=== PATIENT | female | born 1990 | race Caucasian/White ===

== ENCOUNTER 2017-10-23 09:55 | Emergency (ER) | payer OTHER ==
[2017-10-23 11:15] LABS: BILIRUBIN,URINE NEGATIVE (NEGATIVE); CLARITY,URINE CLEAR (CLEAR); GLUCOSE, URINE (UA) NEGATIVE (NEGATIVE); KETONES,URINE (UA) NEGATIVE (NEGATIVE); LEUKOCYTE ESTERASE, URINE NEGATIVE (NEGATIVE); NITRITE,URINE NEGATIVE (NEGATIVE); OCCULT BLOOD,URINE SMALL (NEGATIVE); PH,URINE 7.5 PH (5.0-7.5); PROTEIN,URINE NEGATIVE (NEGATIVE); UROBILINOGEN,URINE 0.2 (NORMAL) E.U./dL (NORMAL)
[2017-10-23 11:16] LABS: HCG UR QUAL POSITIVE
[2017-10-23 11:26] LABS: RBC,URINE 0-5 /HPF (0-5); SQUAMOUS EPITHELIAL CELL,UR MOD Squamous (<= Few)
[2017-10-23 11:27] LABS: BACTERIA,URINE None Seen /HPF (None Seen)
--- NOTE | 2017-10-23 12:25 | ED Physician Documentation ---
PD HPI FEMALE - Stated complaint Stated Complaint: BLEEDING/8-12WKS - Chief complaint Chief Complaint: Abd Pain - History obtained from History obtained from: Patient - History of Present Illness Timing - onset: Today Timing - details: Abrupt onset (had some blood and a clot when went to bathroom this morning. Is 8 weeks .). No: Still present Associated symptoms: Vaginal bleeding. No: Fever, Pelvic pain, Vaginal discharge Contributing factors: Similar symptoms before: Has not had sx before Recently seen: Not recently seen Review of Systems Constitutional: denies: Fever Nose: denies: Rhinorrhea / runny nose, Congestion Throat: denies: Sore throat Respiratory: denies: Cough GI: denies: Abdominal Pain, Nausea, Vomiting, Diarrhea : denies: Dysuria, Frequency PD PAST MEDICAL HISTORY - Past Medical History Cardiovascular: None Respiratory: None Neuro: None Endocrine/Autoimmune: None - Present Medications Home Medications: Ambulatory Orders Medication Instructions Recorded Confirmed Ondansetron HCl [Zofran] 4 mg PO Q6H PRN #30 tablet 10/23/17 - Allergies Allergies/Adverse Reactions: Allergies Allergy/AdvReac Type Severity Reaction Status Date / Time No Known Drug Allergies Allergy Verified 10/23/17 10:08 PD ED PE NORMAL - Vitals Vital signs reviewed: Yes - General General: Alert and oriented X 3, No acute distress, Well developed/nourished - Abdomen Abdomen: Soft, Non tender - Female Female : Deferred - Back Back: No CVA TTP - Derm Derm: Normal color, Warm and dry Results - Vitals Vitals: Vital Signs - 24 hr 10/23/17 10/23/17 10:04 12:51 Temperature 36.4 C L 36.6 C Heart Rate 68 66 Respiratory 16 18 Rate Blood Pressure 116/74 120/74 O2 Saturation 100 100 Oxygen O2 Source Room air - Labs Labs: Laboratory Tests 10/23/17 11:04 Urine Color YELLOW Urine Clarity CLEAR Urine pH 7.5 Ur Specific [place] 1.010 Urine Protein NEGATIVE Urine Glucose (UA) NEGATIVE Urine Ketones NEGATIVE Urine Occult Blood SMALL H Urine Nitrite NEGATIVE Urine Bilirubin NEGATIVE Urine Urobilinogen 0.2 (NORMAL) Ur Leukocyte Esterase NEGATIVE Urine RBC 0-5 Urine WBC 0-3 Ur Squamous Epith Cells MOD Squamous H Urine Bacteria None Seen Ur Microscopic Review INDICATED Urine Culture Comments NOT INDICATED Urine HCG, Qual POSITIVE PD MEDICAL DECISION MAKING - ED course Complexity details: reviewed results (bedside U/S showing normal IUP with good FHR. No pelvic free fluid. ), considered differential, d/w patient - Sepsis Event Vital Signs: Vital Signs - 24 hr 10/23/17 10/23/17 10:04 12:51 Temperature 36.4 C L 36.6 C Heart Rate 68 66 Respiratory 16 18 Rate Blood Pressure 116/74 120/74 O2 Saturation 100 100 Oxygen O2 Source Room air Departure - Departure Disposition: 01 Home, Self Care Clinical Impression: Bleeding in early Qualifiers: Weeks of gestation: 8 weeks Qualified Code(s): Z3A.08 - 8 weeks gestation of Condition: Stable Record reviewed to determine appropriate education?: Yes Instructions: Bleeding Early Preg Follow-Up: MORA MARIN DO [Primary Care Provider] - Prescriptions: Ondansetron HCl [Zofran] 4 mg PO Q6H PRN #30 tablet PRN Reason: Nausea / Vomiting Comments: Lots of fluids. Continue your vitamin B6. You can add Tylenol if needed for cramps. Add ondansetron if needed for nausea. Recheck if persistent or worsening bleeding, pain, other symptoms. Follow-up if some bleeding or spotting persist beyond a couple of more days. Bleeding episodes like this are relatively common in early . Your appears normal right now on ultrasound. Discharge Date/Time: 10/23/17 12:53
[2017-10-23 12:53] VITALS: BP 120/74
== END 2017-10-23 12:53 | disposition home or self-care (01) ==
LOC: ED 09:55
DX: O46.91 Antepartum hemorrhage, unspecified, first trimester (principal); Z3A.08 8 weeks gestation of pregnancy
CPT/HCPCS: 81001; 81003; 81025; 87086; 99283

== ENCOUNTER 2018-04-23 16:37 | Outpatient (CLI) | payer OTHER ==
[2018-04-23 17:06] VITALS: BP 123/68
[2018-04-23 17:31] LABS: RUPTURE OF MEMBRANES PLUS NEGATIVE (NEGATIVE)
[2018-04-23 17:52] LABS: BILIRUBIN,URINE NEGATIVE (NEGATIVE); GLUCOSE, URINE (UA) NEGATIVE (NEGATIVE); KETONES,URINE (UA) 40 mg/dL (NEGATIVE); LEUKOCYTE ESTERASE, URINE NEGATIVE (NEGATIVE); NITRITE,URINE NEGATIVE (NEGATIVE); OCCULT BLOOD,URINE NEGATIVE (NEGATIVE); PH,URINE 6.5 PH (5.0-7.5); PROTEIN,URINE NEGATIVE (NEGATIVE); UROBILINOGEN,URINE 0.2 (NORMAL) E.U./dL (NORMAL)
[2018-04-23 18:16] LABS: BACTERIA,URINE Rare /HPF (None Seen); CLARITY,URINE CLEAR (CLEAR); RBC,URINE 0-5 /HPF (0-5); SQUAMOUS EPITHELIAL CELL,UR RARE Squamous (<= Few)
== END 2018-04-23 18:40 | disposition home or self-care (01) ==
LOC: WFO 16:37 → FBP 16:40 → WFO 18:40
PROVIDERS: ATTEND Obstetrics & Gynecology
DX: O99.89 Other specified diseases and conditions complicating pregnancy, childbirth and the puerperium (principal); R10.9 Unspecified abdominal pain; Z3A.34 34 weeks gestation of pregnancy
CPT/HCPCS: 81001; 84112; 87086; 87797; 99214